=== PATIENT | female | born 1990 | race African-American/Black ===

== ENCOUNTER 2017-05-29 11:53 | Emergency (ER) | payer OTHER ==
[~2017-05-29] VITALS: Ht 162.6 cm; Wt 63.5 kg
[2017-05-29] MEDS ORDERED: MOBIC15 MG PO (12:51)
[2017-05-29] MEDS ORDERED: ZPAK PO (12:51)
[2017-05-29] MEDS ORDERED: PREDNISONE 20 M20 MG PO (12:51)
[2017-05-29] MEDS ORDERED: PROVENTIL HFA6.7 G1 INH (12:51)
[2017-05-29 13:38] VITALS: BP 122/68
== END 2017-05-29 13:41 | disposition home or self-care (01) ==
LOC: ER 11:53
DX: S63.501A Unspecified sprain of right wrist, initial encounter (principal); J15.9 Unspecified bacterial pneumonia; J45.909 Unspecified asthma, uncomplicated; F17.210 Nicotine dependence, cigarettes, uncomplicated; X58.XXXA Exposure to other specified factors, initial encounter; Y93.89 Activity, other specified; Y92.89 Other specified places as the place of occurrence of the external cause; Y99.8 Other external cause status